=== PATIENT | male | born 1945 | race Caucasian/White ===

== ENCOUNTER 2017-12-04 11:51 | Inpatient (IN) | payer MEDICARE, OTHER ==
[~2017-12-04] VITALS: Ht 175.3 cm; Wt 70.8 kg
[~2017-12-04 11:51] MED LIST: AMIO200T PO; ASPI-1152 PO; Divalproex Sodium PO
--- NOTE | 2017-12-04 11:58 | NUR ---
BIBRA FROM HOME DT LOWER BACK PAIN X 1 WEEK, 09/19, SHARP PAIN, NO TRAUMA REPORTED,. PT UNABLE TO AMBULATE DT PAIN. VSS
[2017-12-04] MEDS ORDERED: MORPHINE SULFATE INJ 4 MG/ML DISP.SYRIN ONE ×2 (12:28→14:10)
[2017-12-04] MEDS ORDERED: MORPHINE SULFATE INJ 2 MG/ML DISP.SYRIN ONE (12:28)
[2017-12-04] MEDS ORDERED: KETOROLAC TROMETHAMINE INJ 30 MG/ML VIAL ONE (12:28)
[2017-12-04] MEDS ORDERED: MORPHINE SULFATE INJ 2 MG/ML DISP.SYRIN IM ONE (12:30)
[2017-12-04] MEDS ORDERED: KETOROLAC TROMETHAMINE INJ 60 MG/2 ML VIAL IM ONE (12:30)
[2017-12-04 12:45] LABS: BASOPHILS % (AUTO) 0.3 % (0.0-2.0); HEMATOCRIT 49 % (39-51); HEMOGLOBIN 17.2 g/dL (13.5-17.5); LYMPHOCYTES # (AUTO) 1.2 /CMM (0.8-4.8); LYMPHOCYTES % (AUTO) 13.4 % (20.0-44.0); MEAN CORPUSCULAR HEMOGLOBIN 32 PG (26.0-33.0); MEAN CORPUSCULAR HGB CONC 35 g/dl (31.0-36.0); MEAN CORPUSCULAR VOLUME 91 fL (80-96); MONOCYTES # (AUTO) 0.8 /CMM (0.1-1.30); MONOCYTES % (AUTO) 8.1 % (2.0-12.0); NEUTROPHILS # (AUTO) 7.3 /CMM (1.8-8.9); NEUTROPHILS % (AUTO) 78.2 % (43.0-81.0); PLATELET COUNT (AUTO) 206 /CMM (150-450); RDW COEFFICIENT OF VARIATION 12.6 (11.5-15.0); RED BLOOD CELL COUNT(AUTO) 5.41 MIL/uL (4.5-6.0); WHITE BLOOD COUNT (AUTO) 9.3 K/uL (4.3-11.0)
[2017-12-04 13:04] LABS: ALANINE AMINOTRANSFERASE 24 U/L (12-78); ALBUMIN 3.5 g/dL (3.4-5.0); ALKALINE PHOSPHATASE 62 U/L (46-116); ASPARTATE AMINOTRANSFERASE 20 U/L (15-37); BILIRUBIN,DIRECT 0.5 mg/dL (0.0-0.2); BILIRUBIN,TOTAL 2.2 mg/dL (0.2-1.0); CARBON DIOXIDE 22 mmol/L (21-32); CHLORIDE 102 mmol/L (98-107); CREATININE 0.8 mg/dL (0.6-1.3); GLUCOSE 116 mg/dL (74-106); POTASSIUM 3.6 mmol/L (3.5-5.1); SODIUM SERUM 135 mmol/L (136-145); TOTAL PROTEIN, SERUM 7.3 g/dL (6.4-8.2); UREA NITROGEN, BLOOD 18 mg/dL (7-18)
[2017-12-04] MEDS ORDERED: DIVA-78 PO (13:37)
[2017-12-04] MEDS ORDERED: ASPI-1152 PO (13:37)
--- NOTE | 2017-12-04 13:46 | NUR ---
IV ACCESSED TO RAC 20
[2017-12-04] MEDS ORDERED: MORPHINE SULFATE INJ 2 MG/ML DISP.SYRIN IV ONE (14:00)
[2017-12-04] MEDS ORDERED: ONDANSETRON 4 MG TAB.RAPDIS SL ONE (14:00)
[2017-12-04] MEDS ORDERED: ONDANSETRON 4 MG TAB.RAPDIS ONE (14:10)
--- NOTE | 2017-12-04 14:18 | NUR ---
321-1 TELE Addendum: 12/04/17 at 1421 by YVONNE 321-1 M/S
--- NOTE | 2017-12-04 14:38 | NUR ---
REPORT GIVEN TO JESUS ENAMORADO FOR MORGAN
--- NOTE | 2017-12-04 14:40 | NUR ---
PT TRANSPORTED TO [facility]
[2017-12-04 15:00] VITALS: BP 150/88
[2017-12-04] MEDS ORDERED: MAGNESIUM HYDROXIDE 30 ML UDC PO PRN (15:00)
[2017-12-04] MEDS ORDERED: Z GUARD REMEDY 2 OZ OINT TP PRN (15:00)
[2017-12-04] MEDS ORDERED: ONDANSETRON HCL/PF 4 MG/2 ML VIAL IVP PRN (15:00)
[2017-12-04] MEDS ORDERED: ACETAMINOPHEN 325 MG TABLET PO PRN (15:00)
[2017-12-04] MEDS ORDERED: TEMAZEPAM 15 MG CAPSULE PO PRN (15:00)
[2017-12-04] MEDS ORDERED: MAG HYDROX/AL HYDROX/SIMETH 30 ML UDC PO PRN (15:00)
--- NOTE | 2017-12-04 15:27 | NUR ---
RN ADMITTING NOTES REPORT GIVEN BY E.R NURSE KELLY. PATIENT ADMITTED TO UNIT AT 1450 VIA GURNEY ACCOMPANIED BU E.R. TRANSPORTER AND PT'S SON. TRANSFERRED PT TO BED GENTLY. PT IS A/O X4. ABLE TO VERBALIZED NEEDS AND CONCERNS. PT ORIENTED TO UNIT AND HIS ROOM. PT WITH DIAGNOSIS OF LEFT LOWER LEFT BACK AND HIP PAIN, LESS PAIN AT THIS TIME HE HAD JUST RECEIVED MORPHINE SULFATE 4MG IVP AN HOUR AGO IN THE E.[facility]. V/S TAKEN AND RECORDED. SKIN IS INTACT. LUNGS CLEAR ON AUSCULTATION. ABDOMEN SOFT, NON-TENDER AND NON-DISTENDED WITH POSITIVE BOWEL SOUNDS ON FOUR QUADRANTS. SAFETY MEASURES INITIATED. BED PLACED IN LOWEST LOCKED POSITION WITH SIDE-RAILS UP X2. BED ALARM ON AND CALL LIGHT WITHIN EASY REACH OF PT. ADVISE PT TO CALL FOR ASSISTANCE. WILL CONTINUE TO MONITOR PT ACCORDINGLY.
[2017-12-04 16:00] VITALS: BP 150/86
[2017-12-04] MEDS ORDERED: CLONIDINE HCL 0.1 MG TABLET PO PRN (16:00)
[2017-12-04] MEDS: IV NS 0.9% 1,000 ML IV PRN (16:15)
[2017-12-04] MEDS: DIVALPROEX SODIUM 500 MG TABLET.DR PO SCH (16:16)
--- NOTE | 2017-12-04 16:32 | NUR ---
RN NOTES PATIENT WITH IV ACCESS ON RIGHT AC G # 20 INTACT AND PATENT, IVF OF NS @ 75ML/HR STARTED, NO S/S OF INFILTRATION NOTED. WILL CONTINUE TO MONITOR.
[2017-12-04 17:33] LABS: APPEARANCE,URINE CLEAR (CLEAR); BILIRUBIN,URINE 1+ (NEGATIVE); BLOOD, URINE 1+ Ery/uL (NEGATIVE); COLOR,URINE DARK YELLO (YELLOW); KETONES,URINE 2+ (NEGATIVE); LEUKOCYTE ESTERASE ,URINE NEGATIVE (NEGATIVE); NITRITE, URINE NEGATIVE (NEGATIVE); PH,URINE 6.5 (5.0-8.0); PROTEIN,URINE NEGATIVE (NEGATIVE); UGLUCOSE NEGATIVE (NEGATIVE)
[2017-12-04 17:50] LABS: BACTERIA,URINE 1+ /HPF (None Seen); MUCUS,URINE Few /LPF (None Seen); SQUAMOUS EPITHELIAL CELL,UR 0-2 /HPF (None Seen)
--- NOTE | 2017-12-04 19:10 | NUR ---
MS RN OPENING NOTES PT IN BED,PT A/OX 4, ON ROOM AIR WITH NO SOB OR DISTRESS NOTED.PATIENT WITH IV ON RIGHT AC G # 20 INTACT AND PATENT, ONGOING FLUID NS @ 75ML/HR.DENIES PAIN AT THIS TIME. SAFETY PRECAUTIONS IN PLACE, CALL LIGHT W/REACH. WILL CONTINUE TO MONITOR
--- NOTE | 2017-12-04 19:27 | NUR ---
MS RN CLOSING NOTES PATIENT AWAKE AND WATCHING TV IN BED. HOB ELEVATED. A/O X4, SAME ABLE TO MAKE NEEDS KNOWN. ON ROOM AIR, BREATHING EVEN WITH NO ACUTE DISTRESS NOTED. IV ACCESS ON RAC INTACT AND PATENT, IVF OF NS @ 75ML/HR RUNNING WELL, NO S/S OF INFILTRATIONS NOTED. ALL SAFETY MEASURES INITIATED. BED IN LOWEST LOCKED POSITION WITH SIDE-RAILS UP X2. BED ALARM ON AND CALL LIGHT WITHIN EASY REACH OF PT. ALL NEEDS AND CARE ATTENDED WELL. ENDORSE TO AGRICULTURAL EDUCATION INSTRUCTOR NURSE FOR MORGAN.
[2017-12-04 20:00] VITALS: BP 116/70
[2017-12-04] MEDS: MORPHINE SULFATE INJ 4 MG/ML DISP.SYRIN IV PRN (21:06)
[2017-12-05] MEDS: MORPHINE SULFATE INJ 4 MG/ML DISP.SYRIN IV PRN ×2 (01:53→14:47)
[2017-12-05] MEDS: HYDROCODONE/APAP 5/325MG 1 EACH TABLET PO PRN (06:51)
--- NOTE | 2017-12-05 06:57 | NUR ---
MS RN CLOSING NOTES PT IN BED,PT A/OX 4, ON ROOM AIR WITH NO SOB OR S/S RESPIRATORY DISTRESS NOTED.PATIENT WITH IV ON RIGHT AC G # 20 INTACT AND PATENT, ONGOING FLUID NS @ 75ML/HR.PT COMPLAINED OF PAIN AT LOWER BACK RADIATING TO LEFT HIP. PRN MORPHINE AND NORCO WAS GIVEN.PAIN RELIEVED ONLY FOR COUPLE HOURS BY MEDS. SAFETY PRECAUTIONS IN PLACE, CALL LIGHT W/REACH. WILL ENDORSE TO NEXT SHIFT FOR MORGAN.
[2017-12-05 07:11] LABS: BASOPHILS % (AUTO) 0.2 % (0.0-2.0); EOSINOPHILS % (AUTO) 0.1 % (0.0-6.0); HEMATOCRIT 53 % (39-51); HEMOGLOBIN 17.7 g/dL (13.5-17.5); LYMPHOCYTES # (AUTO) 2.5 /CMM (0.8-4.8); MEAN CORPUSCULAR HEMOGLOBIN 32 PG (26.0-33.0); MEAN CORPUSCULAR HGB CONC 34 g/dl (31.0-36.0); MEAN CORPUSCULAR VOLUME 96 fL (80-96); MONOCYTES # (AUTO) 1.4 /CMM (0.1-1.30); MONOCYTES % (AUTO) 10.8 % (2.0-12.0); NEUTROPHILS # (AUTO) 8.7 /CMM (1.8-8.9); NEUTROPHILS % (AUTO) 68.9 % (43.0-81.0); PLATELET COUNT (AUTO) 209 /CMM (150-450); RDW COEFFICIENT OF VARIATION 13.5 (11.5-15.0); RED BLOOD CELL COUNT(AUTO) 5.51 MIL/uL (4.5-6.0); WHITE BLOOD COUNT (AUTO) 12.6 K/uL (4.3-11.0)
--- NOTE | 2017-12-05 07:18 | NUR ---
RN INITIAL NOTES: PATIENT RESTING IN BED. NONLABORED BREATHING NOTED ON ROOM AIR. DENYING PAIN AT THE MOMENT. IV SITE ON RIGHT AC GAUGE 20 PATENT AND INTACT. BED IN LOWEST LOCKED POSITION. CALL LIGHT WITHIN REACH. WILL CONTINUE TO MONITOR
[2017-12-05 07:29] LABS: CALCIUM, SERUM 8.8 mg/dL (8.5-10.1); CARBON DIOXIDE 24 mmol/L (21-32); CHLORIDE 106 mmol/L (98-107); CREATININE 0.7 mg/dL (0.6-1.3); GLUCOSE 98 mg/dL (74-106); MAGNESIUM 2.2 mg/dL (1.8-2.4); PHOSPHORUS 2.8 mg/dL (2.5-4.9); POTASSIUM 3.7 mmol/L (3.5-5.1); SODIUM SERUM 141 mmol/L (136-145); UREA NITROGEN, BLOOD 16 mg/dL (7-18)
[2017-12-05 07:31] LABS: CHOLESTEROL 166 mg/dL (<200); HDL CHOLESTEROL 74 mg/dL (40-60); LDL 76 mg/dL (0-99); TRIGLYCERIDES 95 mg/dL (30-150)
[2017-12-05 08:00] VITALS: BP 125/53
[2017-12-05] MEDS: DIVALPROEX SODIUM 500 MG TABLET.DR PO SCH ×3 (09:20→17:56)
[2017-12-05] MEDS: ASPIRIN EC 81 MG TABLET.DR PO SCH (09:20)
[2017-12-05] MEDS: CARISOPRODOL 350 MG TABLET PO SCH ×4 (09:21→20:52)
[2017-12-05] MEDS: DEXAMETHASONE SOD PHOSPHATE 4 MG/ML VIAL IV SCH ×2 (09:23→17:57)
[2017-12-05] MEDS: CEFTRIAXONE 1 G in IV D5W 50 ML IV SCH (10:09)
[2017-12-05 14:49] VITALS: BP 144/80
[2017-12-05 16:00] VITALS: BP 127/75
--- NOTE | 2017-12-05 19:15 | NUR ---
MS RN OPENING NOTES PATIENT RESTING IN BED.NO ACUTE DISTRESS NOTED. DENYING PAIN AT THE MOMENT. IV SITE ON RIGHT AC GAUGE 20 PATENT AND INTACT. BED IN LOWEST LOCKED POSITION. CALL LIGHT WITHIN REACH. PAIN MANAGEMENT IS THE MAIN PLAN FOR THE PT. WILL CONTINUE TO MONITOR
--- NOTE | 2017-12-05 19:20 | NUR ---
RN CLOSING NOTES: PATIENT RESTING IN BED. NONLABORED BREATHING NOTED ON ROOM AIR. DENYING PAIN AT THE MOMENT. IV SITE ON RIGHT AC GAUGE 20 PATENT AND INTACT. BED IN LOWEST LOCKED POSITION. CALL LIGHT WITHIN REACH. ENDORSED TO GEORGIE LEE PATIENT EDUCATED ON DVT PUMP USAGE, PATIENT REFUSING APPLICATION AT THE MOMENT
[2017-12-05 20:00] VITALS: BP_SYST 141; BP_DIAS 80; BP_DIAS 86
[2017-12-06] MEDS: IV NS 0.9% 1,000 ML IV PRN ×2 (02:06→17:01)
[2017-12-06 06:59] LABS: BASOPHILS % (AUTO) 0.2 % (0.0-2.0); HEMATOCRIT 45 % (39-51); HEMOGLOBIN 15.3 g/dL (13.5-17.5); LYMPHOCYTES # (AUTO) 1.9 /CMM (0.8-4.8); LYMPHOCYTES % (AUTO) 20.7 % (20.0-44.0); MEAN CORPUSCULAR HEMOGLOBIN 32 PG (26.0-33.0); MEAN CORPUSCULAR HGB CONC 34 g/dl (31.0-36.0); MEAN CORPUSCULAR VOLUME 96 fL (80-96); MONOCYTES # (AUTO) 0.6 /CMM (0.1-1.30); MONOCYTES % (AUTO) 6.6 % (2.0-12.0); NEUTROPHILS # (AUTO) 6.8 /CMM (1.8-8.9); NEUTROPHILS % (AUTO) 72.5 % (43.0-81.0); PLATELET COUNT (AUTO) 192 /CMM (150-450); RDW COEFFICIENT OF VARIATION 13.4 (11.5-15.0); RED BLOOD CELL COUNT(AUTO) 4.74 MIL/uL (4.5-6.0); WHITE BLOOD COUNT (AUTO) 9.4 K/uL (4.3-11.0)
--- NOTE | 2017-12-06 07:00 | NUR ---
MS RN CLOSING NOTES PATIENT RESTING IN BED. PT ON ROOM AIR. DENYING PAIN AT THIS TIME. IV SITE ON RIGHT AC GAUGE 20 PATENT AND INTACT. ONGOING FLUID NS 0.9% AT 75 ML/HR. BED IN LOWEST LOCKED POSITION. CALL LIGHT WITHIN REACH.PATIENT REFUSING DVT PUMPS. WILL ENDORSE TO NEXT SHIFT FOR MORGAN.
[2017-12-06 07:14] LABS: CALCIUM, SERUM 8.6 mg/dL (8.5-10.1); CARBON DIOXIDE 28 mmol/L (21-32); CHLORIDE 103 mmol/L (98-107); CREATININE 0.6 mg/dL (0.6-1.3); GLUCOSE 117 mg/dL (74-106); POTASSIUM 3.8 mmol/L (3.5-5.1); SODIUM SERUM 138 mmol/L (136-145); UREA NITROGEN, BLOOD 19 mg/dL (7-18)
[2017-12-06 08:00] VITALS: BP 153/72
--- NOTE | 2017-12-06 08:00 | NUR ---
SET AND EXHIBIT DESIGNER NOTES: LOWER EXTREMITY WEAKNESS NOTED DUE TO PAIN Addendum: 12/06/17 at 0846 by MASSIMO SLADE RN Amended: Links added.
[2017-12-06] MEDS: CARISOPRODOL 350 MG TABLET PO SCH ×4 (08:22→21:21)
[2017-12-06] MEDS: DIVALPROEX SODIUM 500 MG TABLET.DR PO SCH ×3 (08:22→17:01)
[2017-12-06] MEDS: ASPIRIN EC 81 MG TABLET.DR PO SCH (08:22)
[2017-12-06] MEDS: DEXAMETHASONE SOD PHOSPHATE 4 MG/ML VIAL IV SCH ×2 (08:22→17:01)
[2017-12-06] MEDS: CEFTRIAXONE 1 G in IV D5W 50 ML IV SCH (11:07)
[2017-12-06 16:00] VITALS: BP 128/69
--- NOTE | 2017-12-06 19:20 | NUR ---
RN CLOSING NOTES: PATIENT RESTING IN BED. NONLABORED BREATHING NOTED ON ROOM AIR. DENYING PAIN AT THE MOMENT. IV SITE ON RIGHT AC GAUGE 20 PATENT AND INTACT. BED IN LOWEST LOCKED POSITION. CALL LIGHT WITHIN REACH. PATIENT ENCOURAGED TO TURN AND REPOSITION EVERY 2 HOURS. KEPT CLEAN AND DRY THROUGHOUT SHIFT. REFUSING DVT PUMP APPLICATION AT THE MOMENT. ENDORSED TO DIE DESIGNER
--- NOTE | 2017-12-06 19:25 | NUR ---
MS RN NOTES Report received. Patient received in bed, awake and verbally responsive. Alert and oriented x4. Denies any pain at the moment. No SOB/labored breathing noted. Not in any type of distress. Safety measures in place. Bed in lowest position with call light within reach. Enforced to call for any assistance. Will continue to monitor and assess patient
[2017-12-06 20:00] VITALS: BP 132/75
[2017-12-06] MEDS: HYDROCODONE/APAP 5/325MG 1 EACH TABLET PO PRN (21:22)
[2017-12-07 07:13] LABS: BASOPHILS % (AUTO) 0.2 % (0.0-2.0); HEMATOCRIT 47 % (39-51); HEMOGLOBIN 15.7 g/dL (13.5-17.5); LYMPHOCYTES # (AUTO) 2.1 /CMM (0.8-4.8); MEAN CORPUSCULAR HEMOGLOBIN 33 PG (26.0-33.0); MEAN CORPUSCULAR HGB CONC 34 g/dl (31.0-36.0); MEAN CORPUSCULAR VOLUME 97 fL (80-96); MONOCYTES # (AUTO) 0.6 /CMM (0.1-1.30); NEUTROPHILS # (AUTO) 6.5 /CMM (1.8-8.9); NEUTROPHILS % (AUTO) 69.8 % (43.0-81.0); PLATELET COUNT (AUTO) 192 /CMM (150-450); RDW COEFFICIENT OF VARIATION 13.5 (11.5-15.0); RED BLOOD CELL COUNT(AUTO) 4.82 MIL/uL (4.5-6.0); WHITE BLOOD COUNT (AUTO) 9.3 K/uL (4.3-11.0)
--- NOTE | 2017-12-07 07:13 | NUR ---
MS RN CLOSING NOTES Report given. Patient remained in bed, awake and comfortable. Alert and oriented x4, verbally responsive. Denies any pain at this moment. No SOB/labored breathing noted or reported. Not in any type of distress. Afebrile. All needs anticipated and met. Safety measures in place. Bed in locked and lowest position with call light within reach. Endorsed to oncoming shift nurse.
--- NOTE | 2017-12-07 07:13 | NUR ---
MS RN CLOSING NOTES Report given. Patient remained in bed, awake and comfortable. Alert and oriented x4, verbally responsive. Denies any pain at this moment. Rectal incision dressing changed. Sitz bath refused. No SOB/labored breathing noted or reported. Not in any type of distress. Afebrile. Continue on antibiotic treatment. All needs anticipated and met. Safety measures in place. Bed in locked and lowest position with call light within reach. Endorsed to oncoming shift nurse. Addendum: 12/07/17 at 0713 by AVELINA JOSÉ RN INCORRECT PATIENT - DISREGARD
--- NOTE | 2017-12-07 07:25 | NUR ---
MS RN OPENING NOTES RECEIVED PATIENT AWAKE IN BED IN NO ACUTE SIGNS OF DISTRESS. A/O X4. ABLE TO MAKE NEEDS KNOWN, DENIES ANY PAIN OR DISCOMFORTS AT THIS TIME. ON ROOM AIR, BREATHING EVEN AND UNLABORED. IV ACCESS ON RIGHT AC INTACT AND PATENT, IVF OF NS @ 75ML/HR INFUSING WELL, NO S/S OF INFILTRATIONS NOTED. SKIN DRY AND WARM TO TOUCH. SAFETY MEASURES IN PLACE. CALL LIGHT WITHIN REACH. BED IN LOWEST LOCKED POSITION WITH SR UP X2. WILL CONTINUE TO MONITOR.
[2017-12-07 07:32] LABS: CALCIUM, SERUM 8.5 mg/dL (8.5-10.1); CARBON DIOXIDE 33 mmol/L (21-32); CHLORIDE 102 mmol/L (98-107); CREATININE 0.6 mg/dL (0.6-1.3); GLUCOSE 108 mg/dL (74-106); POTASSIUM 3.9 mmol/L (3.5-5.1); SODIUM SERUM 139 mmol/L (136-145); UREA NITROGEN, BLOOD 20 mg/dL (7-18)
[2017-12-07 08:00] VITALS: BP 146/62
[2017-12-07] MEDS: DEXAMETHASONE SOD PHOSPHATE 4 MG/ML VIAL IV SCH (08:44)
[2017-12-07] MEDS: ASPIRIN EC 81 MG TABLET.DR PO SCH (08:44)
[2017-12-07] MEDS: CARISOPRODOL 350 MG TABLET PO SCH ×2 (08:44→12:18)
[2017-12-07] MEDS: DIVALPROEX SODIUM 500 MG TABLET.DR PO SCH ×2 (08:44→12:18)
[2017-12-07] MEDS: CEFTRIAXONE 1 G in IV D5W 50 ML IV SCH (09:49)
[2017-12-07] MEDS ORDERED: CLON0.1T14 PO (09:51)
[2017-12-07] MEDS ORDERED: METH4TAB17 PO (09:51)
[2017-12-07] MEDS ORDERED: CARI350T27 PO (09:51)
[2017-12-07] MEDS ORDERED: TEMA15CA5 PO (09:51)
--- NOTE | 2017-12-07 11:01 | NUR ---
RN NOTES PATIENT FOR DISCHARGE THIS AFTERNOON TO [facility]. CALLED AND REPORT GIVEN TO NURSE VAZQUEZ AND SAID THAT PATIENT WILL GO TO ROOM 102. PATIENT'S SON TANIYA AWARE OF PT'S TRANSFER TO [facility].
--- NOTE | 2017-12-07 14:23 | NUR ---
RN DISCHARGED NOTES PATIENT DISCHARGED TO [facility] IN STABLE CONDITION. A/O X4, SAME ABLE TO MAKE NEEDS KNOWN WITH NO C/O PAIN VOICED DURING DISCHARGE. V/S TAKEN AND RECORDED. SKIN IS INTACT. BELONGINGS CHECKED, COUNTED AND SIGNED FORM. HEALTH TEACHINGS GIVEN AND VERBALIZED UNDERSTANDING. SMOKING CESSATION EDUCATION GIVEN. PATIENT LEFT UNIT @ 1415 VIA GURNEY ON ROOM AIR IN NO ACUTE SIGNS OF DISTRESS ACCOMPANIED BY 2 EMT'S. CHARGE NURSE AWARE OF DISCHARGE.
[2017-12-07] MEDS ORDERED: CEPH-570 PO (14:50)
== END 2017-12-07 14:00 | DRG 540 ==
LOC: ER 11:53 → MED 14:24
PROVIDERS: ADMIT Nurse Practitioner Acute Care; ATTEND Nurse Practitioner Acute Care
DX: M86.9 Osteomyelitis, unspecified (principal); N39.0 Urinary tract infection, site not specified; F19.20 Other psychoactive substance dependence, uncomplicated; I48.91 Unspecified atrial fibrillation; I10 Essential (primary) hypertension; R73.9 Hyperglycemia, unspecified; M54.5 Low back pain; M25.552 Pain in left hip; I25.2 Old myocardial infarction; R56.9 Unspecified convulsions; Z87.891 Personal history of nicotine dependence; F12.90 Cannabis use, unspecified, uncomplicated; Z79.899 Other long term (current) drug therapy
CPT/HCPCS: 36415; 71045-TC; 73502; 80048-TC; 80061-TC; 80076-TC; 81000-TC; 83735-TC; 84100-TC; 85025-TC; 87081-TC; 97116-TC; 97530-TC; A4606; J0696; J1100; J1885; J2270; J7030; J7060; Q0162; Z7610

== ENCOUNTER 2023-12-11 05:51 | Inpatient (IN) | payer BC, MEDICARE ==
[~2023-12-11] VITALS: Ht 172.7 cm; Wt 67.6 kg
[~2023-12-11 05:51] MED LIST changes: -AMIO200T PO; -ASPI-1152 PO; +ASPI-1420 PO; +CARI350T27 PO; +CEPH-570 PO; +CLON0.1T14 PO; +DIVA-78 PO; -Divalproex Sodium PO; +METH4TAB17 PO; +TEMA15CA5 PO
--- NOTE | 2023-12-11 05:59 | NUR ---
HOWARD FROM HOME C/O SOB LAST NIGHT TESTED COV + 12/03/23 SATTING 92% ON R/A ON SCENE.PT PLACE IN BED CONNECT TO MONITOR,WAITING FOR ORDERS.
--- NOTE | 2023-12-11 06:58 | NUR ---
SEEN PT AT BEDSIDE.
--- NOTE | 2023-12-11 07:14 | NUR ---
COOK HELPER PRESERVES AT BEDSIDE.
[2023-12-11 07:32] LABS: BASOPHILS % (AUTO) 0.1 % (0.0-2.0); EOSINOPHILS % (AUTO) 0.1 % (0.0-6.0); HEMATOCRIT 27 % (39-51); HEMOGLOBIN 9.2 g/dL (13.5-17.5); LYMPHOCYTES # (AUTO) 0.3 K/uL (0.8-4.8); LYMPHOCYTES % (AUTO) 0.9 % (20.0-44.0); MEAN CORPUSCULAR HEMOGLOBIN 30 PG (26.0-33.0); MEAN CORPUSCULAR HGB CONC 34 g/dl (31.0-36.0); MEAN CORPUSCULAR VOLUME 88 fL (80-96); MONOCYTES # (AUTO) 0.2 K/uL (0.1-1.30); MONOCYTES % (AUTO) 0.5 % (2.0-12.0); NEUTROPHILS # (AUTO) 29.8 K/uL (1.8-8.9); NEUTROPHILS % (AUTO) 98.4 % (43.0-81.0); PLATELET COUNT (AUTO) 394 K/uL (150-450); RED CELL DISTRIBUTION WIDTH 16.5 % (11.5-15.0)
[2023-12-11 07:34] LABS: WHITE BLOOD COUNT (AUTO) 30.3 K/uL (4.3-11.0)
--- NOTE | 2023-12-11 07:34 | NUR ---
wbc 30.3, md aware
[2023-12-11 07:46] LABS: INR 1.08 (0.91-1.10); PARTIAL THROMBOPLASTIN TIME 25.5 SEC (24.3-34.3); PROTHROMBIN TIME 11.4 SECS (9.2-11.1)
[2023-12-11 07:51] LABS: LACTIC ACID 1.3 mmol/L (0.4-2.0)
[2023-12-11 07:58] LABS: ALANINE AMINOTRANSFERASE 24 U/L (12-78); ALBUMIN 3.3 g/dL (3.4-5.0); ALKALINE PHOSPHATASE 131 U/L (46-116); ASPARTATE AMINOTRANSFERASE 38 U/L (15-37); BILIRUBIN,DIRECT 0.1 mg/dL (0.0-0.2); BILIRUBIN,TOTAL 0.6 mg/dL (0.2-1.0); CALCIUM, SERUM 8.6 mg/dL (8.5-10.1); CARBON DIOXIDE 22 mmol/L (21-32); CHLORIDE 98 mmol/L (98-107); CREATININE 0.7 mg/dL (0.6-1.3); GLUCOSE 85 mg/dL (74-106); POTASSIUM 4.3 mmol/L (3.5-5.1); SODIUM SERUM 130 mmol/L (136-145); TOTAL PROTEIN, SERUM 6.6 g/dL (6.4-8.2); UREA NITROGEN, BLOOD 20 mg/dL (7-18)
[2023-12-11] MEDS ORDERED: CEFTRIAXONE 1GM BAG (ER ONLY) 50 ML IV ONE (08:01)
[2023-12-11] MEDS: CEFTRIAXONE 1GM BAG (ER ONLY) 50 ML IV ONE (08:08)
[2023-12-11] MEDS ORDERED: DOCU100T2 PO (08:10)
[2023-12-11] MEDS ORDERED: SERT50TA PO (08:10)
[2023-12-11] MEDS ORDERED: APIX5TAB PO (08:10)
[2023-12-11] MEDS ORDERED: LEVO125T8 PO (08:10)
[2023-12-11] MEDS ORDERED: AMIO100T4 PO (08:10)
--- NOTE | 2023-12-11 08:30 | NUR ---
MOVE SHEET SUBMITTED & CALLED FOR BED.
[2023-12-11] MEDS: AZITHROMYCIN 500 MG in IV D5W 250 ML IV ONE (08:40)
[2023-12-11] MEDS: IV NS 0.9% 1,000 ML BAG IV ONE (08:40)
--- NOTE | 2023-12-11 08:42 | NUR ---
covid positive, aware
--- NOTE | 2023-12-11 09:06 | NUR ---
HOSPITALIST SPEAKING WITH DR. BRUCE.
--- NOTE | 2023-12-11 09:11 | NUR ---
GOT BED 113-1 READY AFTER 10 AM.
--- NOTE | 2023-12-11 09:17 | NUR ---
ROOM 101, ADMITTING AWARE
--- NOTE | 2023-12-11 09:31 | NUR ---
TANIYA [facility] [phone]
--- NOTE | 2023-12-11 10:09 | NUR ---
REPORT GIVEN TO GEGE LEE
[2023-12-11 10:30] LABS: ANISOCYTOSIS 1+; BAND % (MANUAL) 9 % (0.0-5.0); BASOPHILS % (MANUAL) 0 % (0.0-2.0); EOSINOPHILS % (MANUAL) 0 % (0-4); LYMPHOCYTES % (MANUAL) 5 % (16-48); MONOCYTES % (MANUAL) 2 % (0-11.0); NEUTROPHILS % (MANUAL) 84 (42-76); PLATELET ESTIMATE ADEQUATE; STOMATOCYTES RARE
--- NOTE | 2023-12-11 10:43 | NUR ---
DR EVERETT AT BEDSIDE
--- NOTE | 2023-12-11 11:00 | NUR ---
PATIENT TRANSFERED TO [facility] VIA [facility], ALL CARE ENDORSED TO JESUS DE GUZMAN
[2023-12-11] MEDS ORDERED: ACETAMINOPHEN 650 MG/SUPP.RECT RC PRN (11:30)
[2023-12-11] MEDS ORDERED: ONDANSETRON HCL/PF 4 MG/2 ML VIAL IVP PRN (11:30)
[2023-12-11] MEDS ORDERED: VANCOMYCIN 1 GM in IV D5W 250 ML IV ONE (11:30)
[2023-12-11] MEDS ORDERED: ALBUTEROL SULFATE 8 GM HFA.AER.AD IH PRN (11:30)
--- NOTE | 2023-12-11 11:40 | NUR ---
LEAD ELECTRICAL ENGINEER NOTES Received from ER via [facility] with a diagnosis of respiratory distress and tested positive for COVID19 and on isolation. AOX4 with no complaints of pain or discomfort at this time. Patient is on 2L NC and tolerating it well. IV access on RAC 20G patent and intact. HOB elevated to pts comfort. Siderails up at all times x2. Bed locked and at its lowest height for safety. Call light within reach. Care is ongoing.
[2023-12-11] MEDS ORDERED: CEFTRIAXONE 1 G in IV D5W 50 ML IV SCH (12:00)
[2023-12-11 12:03] VITALS: BP 125/69; TEMP 97.3; O2SAT 97
[2023-12-11] MEDS: dexaMETHasone SOD PHOSPHATE 10 MG/ML VIAL IV SCH (12:23)
[2023-12-11] MEDS: APIXABAN 5 MG TABLET PO SCH (12:27)
[2023-12-11] MEDS ORDERED: MEROPENEM 500 MG in IV NS 0.9% 50 ML IV SCH (13:00)
[2023-12-11] MEDS: MEROPENEM 1 G in IV NS 0.9% 100 ML IV SCH (13:52)
--- NOTE | 2023-12-11 13:59 | NUR ---
REGULATORY COMPLIANCE OFFICER NOTES Patient on room air with 02 saturation at 98%. No SOB noted.
[2023-12-11] MEDS: REMDESIVIR (CHARGED) 200 MG in IV NS 0.9% 250 ML IV ONE (14:54)
--- NOTE | 2023-12-11 14:54 | NUR ---
INGOT WEIGHER NOTES Remdesivir IV ATB given now and Vancomycin IV ATB to be given after by RN. Charge Nurse aware.
[2023-12-11] MEDS: VANCOMYCIN 1.5 GM in IV D5W 500 ML IV ONE (15:56)
[2023-12-11 16:00] VITALS: BP 120/60; TEMP 97.2; O2SAT 94
[2023-12-11] MEDS: DOCUSATE SODIUM 100 MG CAPSULE PO SCH (16:16)
[2023-12-11] MEDS ORDERED: APIXABAN 5 MG TABLET PO SCH (17:00)
--- NOTE | 2023-12-11 18:45 | NUR ---
PUNCH BOX TENDER CLOSING NOTES All dues meds and tx given as ordered. Pt tolerated everything well. All needs attended to. HOB elevated to pts comfort. Siderails up at all times x2. Bed locked and at its lowest height for safety. Call light within reach. Will endorse to oncoming nurse.
--- NOTE | 2023-12-11 19:35 | NUR ---
RN OPENING NOTES RECEIVED PATIENT RESTING COMFORTABLY IN BED, AWAKE. A/O X4, NO ACUTE DISTRESS NOTED AT THIS TIME. DENIES PAIN. AFEBRILE. ON EXTERNAL MONITOR READING 75 PACING. TOLERATING ROOM AIR AT THIS TIME 97% SPO2. IV ACCESS ON LEFT FA #20G, PATENT AND INTACT. PT IS AMBULATORY, ABLE TO USE TOILET AND URINAL. REMINDED PT TO CALL FOR ASSISTANCE. ALL SAFETY MEASURES IMPLEMENTED: SIDE RAILS UP AT ALL TIMES, BED LOCKED AND IN LOWEST POSITION. CALL LIGHT AND BED TABLE ON EASY REACH. WILL CONTINUE PLAN OF CARE.
[2023-12-11 20:00] VITALS: BP 116/59; TEMP 97.9; O2SAT 97
[2023-12-11] MEDS ORDERED: DOXYCYCLINE 100 MG in IV D5W 100 ML IV SCH (21:00)
[2023-12-12] VITALS: BP 112/58; TEMP 97.7; O2SAT 94
[2023-12-12] MEDS: VANCOMYCIN HCL 1.25 GM in IV D5W 250 ML IV SCH (01:43)
[2023-12-12] MEDS: MAGNESIUM HYDROXIDE 30 ML UDC PO PRN (03:50)
[2023-12-12 04:00] VITALS: BP 118/55; TEMP 98; O2SAT 93
--- NOTE | 2023-12-12 06:48 | NUR ---
POOLROOM TABLE ATTENDANT CLOSING NOTES PATIENT IN BED, AWAKE. REMAINS STABLE. AFEBRILE. NO SOB NOTED AT THIS TIME. NO C/O PAIN OR ANY DISCOMFORT. AFEBRILE. ON ROOM AIR SATING 98% SPO2. INTACT IV ACCESS ON LEFT FA #20G, PATENT. ABLE TO USE TOILET. ASSISTED WITH ALL HIS NEEDS. ALL DUE MEDS GIVEN ORDERED. KEPT CLEAN AND COMFORTABLE. ISOLATION FOR COVID INFECTION OBSERVED. ALL SAFETY MEASURES MAINTAINED. WILL ENDORSE TO INCOMING SHIFT RN.
--- NOTE | 2023-12-12 07:19 | NUR ---
CAMP PROGRAM DIRECTOR NOTES Received pt awake in bed. AOX4 with no complaints of pain or discomfort at this time. On isolation for COVID19. Patient is on room air and tolerating it well. IV access on LAC 22G patent and intact. HOB elevated to pts comfort. Siderails up at all times x2. Bed locked and at its lowest height for safety. Call light within reach. Care is ongoing.
[2023-12-12 08:00] VITALS: BP 110/64; TEMP 97.7; O2SAT 94
[2023-12-12 08:50] LABS: INR 1.14 (0.91-1.10); PARTIAL THROMBOPLASTIN TIME 25.9 SEC (24.3-34.3)
[2023-12-12 08:53] LABS: BASOPHILS # (AUTO) 0.1 K/uL (0.0-0.2); BASOPHILS % (AUTO) 0.2 % (0.0-2.0); HEMATOCRIT 23 % (39-51); HEMOGLOBIN 8.1 g/dL (13.5-17.5); LYMPHOCYTES # (AUTO) 0.6 K/uL (0.8-4.8); LYMPHOCYTES % (AUTO) 2.1 % (20.0-44.0); MEAN CORPUSCULAR HEMOGLOBIN 30 PG (26.0-33.0); MEAN CORPUSCULAR HGB CONC 35 g/dl (31.0-36.0); MEAN CORPUSCULAR VOLUME 87 fL (80-96); MONOCYTES # (AUTO) 0.1 K/uL (0.1-1.30); MONOCYTES % (AUTO) 0.4 % (2.0-12.0); NEUTROPHILS # (AUTO) 26.2 K/uL (1.8-8.9); NEUTROPHILS % (AUTO) 97.3 % (43.0-81.0); PLATELET COUNT (AUTO) 315 K/uL (150-450); RED CELL DISTRIBUTION WIDTH 16.9 % (11.5-15.0); WHITE BLOOD COUNT (AUTO) 26.9 K/uL (4.3-11.0)
[2023-12-12 08:59] LABS: ALANINE AMINOTRANSFERASE 20 U/L (12-78); ALBUMIN 2.8 g/dL (3.4-5.0); ALKALINE PHOSPHATASE 138 U/L (46-116); ASPARTATE AMINOTRANSFERASE 34 U/L (15-37); BILIRUBIN,DIRECT 0.1 mg/dL (0.0-0.2); BILIRUBIN,TOTAL 0.6 mg/dL (0.2-1.0); CALCIUM, SERUM 8.1 mg/dL (8.5-10.1); CARBON DIOXIDE 23 mmol/L (21-32); CHLORIDE 102 mmol/L (98-107); CREATININE 0.6 mg/dL (0.6-1.3); GLUCOSE 82 mg/dL (74-106); POTASSIUM 3.4 mmol/L (3.5-5.1); SODIUM SERUM 134 mmol/L (136-145); TOTAL PROTEIN, SERUM 5.8 g/dL (6.4-8.2); UREA NITROGEN, BLOOD 14 mg/dL (7-18)
[2023-12-12 09:25] LABS: FERRITIN 1919 ng/mL (8-388)
[2023-12-12] MEDS: POTASSIUM CHLORIDE 20 MEQ TAB.PRT.SR PO ONE (09:32)
[2023-12-12] MEDS: AMIODARONE HCL 200 MG TABLET PO SCH (09:32)
[2023-12-12] MEDS: LEVOTHYROXINE SODIUM 125 MCG TABLET PO SCH (09:32)
[2023-12-12] MEDS: SERTRALINE HCL 50 MG TABLET PO SCH (09:32)
--- NOTE | 2023-12-12 09:40 | NUR ---
SECURITY STRATEGIST NOTES Patient has routine Eliquis and HGB is 8.[address] Palma made aware with the ok to adminster this mornings dose and get a H&H at 1400. Noted and carried out.
--- NOTE | 2023-12-12 11:00 | NUR ---
PERSONAL LOAN SPECIALIST NOTES Patient complaining of increased congestion. Informed Dr. Palma and relays this mornings CXR with no new orders at this time.
[2023-12-12 12:00] VITALS: BP 114/56; TEMP 97.9; O2SAT 94
[2023-12-12 14:50] LABS: HEMATOCRIT 23 % (39-51); HEMOGLOBIN 7.8 g/dL (13.5-17.5); MEAN CORPUSCULAR HEMOGLOBIN 29 PG (26.0-33.0); MEAN CORPUSCULAR HGB CONC 34 g/dl (31.0-36.0); MEAN CORPUSCULAR VOLUME 87 fL (80-96); PLATELET COUNT (AUTO) 294 K/uL (150-450); RED BLOOD CELL COUNT(AUTO) 2.68 MIL/uL (4.5-6.0); RED CELL DISTRIBUTION WIDTH 16.8 % (11.5-15.0); WHITE BLOOD COUNT (AUTO) 24.7 K/uL (4.3-11.0)
[2023-12-12] MEDS: ACETAMINOPHEN 325 MG TABLET PO PRN (15:15)
[2023-12-12] MEDS: REMDESIVIR (CHARGED) 100 MG in IV NS 0.9% 120 ML IV SCH (15:15)
--- NOTE | 2023-12-12 15:40 | NUR ---
WEB OPERATIONS LEAD NOTES Relayed that the patients HGB redraw results came back and is 7.8 to Sky Patel NP and made him aware that patient has black stool. New order to send stool to the lab and test for occult blood. Noted and carried out.
[2023-12-12 16:00] VITALS: BP 106/67; TEMP 98.5; O2SAT 96
--- NOTE | 2023-12-12 16:08 | NUR ---
PERFUSIONIST NOTES Ok to give this dose of Eliquis per Sky Patel NP.
[2023-12-12] MEDS: PANTOPRAZOLE 40 MG TABLET.DR PO SCH (16:39)
[2023-12-12 18:33] LABS: OCCULT BLOOD STOOL POSITIVE (NEGATIVE)
--- NOTE | 2023-12-12 18:54 | NUR ---
MANAGER USER EXPERIENCE CLOSING NOTES All due meds and tx given as ordered. Pt tolerated everything well. All needs attended to. Pt is on room air and tolerating it well. HOB elevated to pts comfort. Siderails up at all times x2. Bed locked and at its lowest height for safety. Call light within reach. WIll endorse to oncoming nurse.
--- NOTE | 2023-12-12 19:30 | NUR ---
CONTINUING EDUCATION INSTRUCTOR OPENING NOTE PT IS RECEIVED IN BED RESTING A/OX 4 ABLE TO MAKE NEEDS MET WITH NO COMPLICATIONS. PT IS CURRENTLY ON ROOM AIR SATURATING AT 95% AND DENIES SOB OR RESPIRATORY DISTRESS. PT IS ON TELE MONITORING WITH A READING OF A-PACING IN THE 70'S. PT IS AMBULATORY WITH NO ASSIST. PT HAS IV ACCESS PM THE RAC# 22G AND A RCW PORTACATH. ALL SAFETY MEASURES IN PLACE, BED IS LOCKED, ON THE LOWEST POSITION, WITH CALL LIGHT AND BEDSIDE TABLE WITHIN EASY REACH. PLAN OF CARE ONGOING.
[2023-12-12 20:00] VITALS: BP 110/57; TEMP 97.6; O2SAT 95
[2023-12-13] VITALS: BP 116/69; TEMP 97.3; O2SAT 93
[2023-12-13 04:00] VITALS: BP 116/67; TEMP 97.5; O2SAT 100
[2023-12-13 06:10] LABS: BASOPHILS % (AUTO) 0.1 % (0.0-2.0); HEMATOCRIT 24 % (39-51); HEMOGLOBIN 8.2 g/dL (13.5-17.5); LYMPHOCYTES # (AUTO) 0.9 K/uL (0.8-4.8); LYMPHOCYTES % (AUTO) 4.8 % (20.0-44.0); MEAN CORPUSCULAR HEMOGLOBIN 30 PG (26.0-33.0); MEAN CORPUSCULAR HGB CONC 35 g/dl (31.0-36.0); MEAN CORPUSCULAR VOLUME 86 fL (80-96); MONOCYTES % (AUTO) 0.3 % (2.0-12.0); NEUTROPHILS # (AUTO) 18.4 K/uL (1.8-8.9); NEUTROPHILS % (AUTO) 94.8 % (43.0-81.0); PLATELET COUNT (AUTO) 272 K/uL (150-450); RED BLOOD CELL COUNT(AUTO) 2.74 MIL/uL (4.5-6.0); RED CELL DISTRIBUTION WIDTH 16.9 % (11.5-15.0); WHITE BLOOD COUNT (AUTO) 19.4 K/uL (4.3-11.0)
[2023-12-13 06:18] LABS: INR 1.13 (0.91-1.10); PARTIAL THROMBOPLASTIN TIME 26.3 SEC (24.3-34.3); PROTHROMBIN TIME 11.9 SECS (9.2-11.1)
[2023-12-13 06:56] LABS: ALANINE AMINOTRANSFERASE 24 U/L (12-78); ALBUMIN 2.9 g/dL (3.4-5.0); ALKALINE PHOSPHATASE 147 U/L (46-116); ASPARTATE AMINOTRANSFERASE 33 U/L (15-37); BILIRUBIN,DIRECT 0.1 mg/dL (0.0-0.2); BILIRUBIN,TOTAL 0.6 mg/dL (0.2-1.0); CALCIUM, SERUM 8.3 mg/dL (8.5-10.1); CARBON DIOXIDE 24 mmol/L (21-32); CHLORIDE 102 mmol/L (98-107); CREATININE 0.5 mg/dL (0.6-1.3); GLUCOSE 75 mg/dL (74-106); PHOSPHORUS 2.2 mg/dL (2.5-4.9); POTASSIUM 3.5 mmol/L (3.5-5.1); SODIUM SERUM 134 mmol/L (136-145); TOTAL PROTEIN, SERUM 5.8 g/dL (6.4-8.2); UREA NITROGEN, BLOOD 13 mg/dL (7-18)
--- NOTE | 2023-12-13 07:21 | NUR ---
ULTIMATE HOOPS TRAINER OPENING NOTE PT IS IN BED RESTING A/OX 4 ABLE TO MAKE NEEDS MET WITH NO COMPLICATIONS. PT IS CURRENTLY ON ROOM AIR SATURATING AT 98% AND DENIES SOB OR RESPIRATORY DISTRESS. PT IS ON TELE MONITORING WITH A READING OF A-PACING IN THE 'S. PT IS AMBULATORY WITH NO ASSIST. PT HAS IV ACCESS PM THE RAC# 22G AND A RCW PORTACATH. ALL SAFETY MEASURES IN PLACE, BED IS LOCKED, ON THE LOWEST POSITION, WITH CALL LIGHT AND BEDSIDE TABLE WITHIN EASY REACH. WILL GIVE REPORT TO AM SHIFT FOR ONGOING CARE. Addendum: 12/13/23 at 0722 by ASHELY HALL RN CLOSING NOTE
--- NOTE | 2023-12-13 07:25 | NUR ---
HEARING AID REPAIR TECHNICIAN OPENING NOTES Received pt awake in bed. AOX4, no complaints of pain or discomfort at this time. On isolation for COVID19. Patient is on room air and tolerating it well. IV access on LAC 22G patent and intact saline lock. HOB elevated to pts comfort. Siderails up at all times x2. Bed locked and at its lowest height for safety. Call light within reach. Care is ongoing.
[2023-12-13 08:00] VITALS: BP 122/59; TEMP 97.3; O2SAT 95
[2023-12-13 08:08] LABS: URIC ACID 3.1 mg/dL (2.6-7.2)
[2023-12-13] MEDS: VANCOMYCIN 1 GM in IV D5W 250ml IV SCH (09:35)
[2023-12-13 12:00] VITALS: BP 102/55; TEMP 97.5; O2SAT 95
[2023-12-13] MEDS: REMDESIVIR (CHARGED) 100 MG in IV NS 0.9% 80 ML IV SCH (13:26)
[2023-12-13 16:00] VITALS: BP 100/64; TEMP 97.3; O2SAT 96
[2023-12-13] MEDS: K PHOS NEUTRAL 250 MG TABLET PO ONE (16:25)
--- NOTE | 2023-12-13 18:30 | NUR ---
ARTIST MANNEQUIN COLORING CLOSING NOTES All due meds and tx given as ordered. Pt tolerated everything well. All needs attended to. Pt remains on room air and tolerating it well. HOB elevated to pts comfort. Siderails up at all times x2. Bed locked and at its lowest height for safety. Call light with reach. Will endorse to oncoming nurse.
--- NOTE | 2023-12-13 19:15 | NUR ---
RN OPENING NOTES PT RECEIVED IN BED AWAKE AND ALERT X4; ABLE TO MAKE NEEDS KNOWN AND AMBULATORY. PT IS CURRENTLY ON ISOLATION DUE TO A POSITIVE COVID 19 STATUS. PT IS CURRENTLY ON ROOM AIR SATURATING AT 95% AND DENIES SOB OR RESPIRATORY DISTRESS. PT HAS IV ACCESS ON THE RFA #22G FLUSHING WELL WITH NO COMPLICATIONS. PT IS ON TELE MONITORING WITH A READING OF A-PACING IN THE 70'S. ALL SAFETY MEASURES IN PLACE, BED IS LOCKED, ON THE LOWEST POSITION WITH CALL LIGHT AND BEDSIDE TABLE WITHIN EASY REACH. PLAN OF CARE ONGOING.
[2023-12-13 20:00] VITALS: BP 121/60; TEMP 97.8; O2SAT 95
[2023-12-14] VITALS: BP 117/63; TEMP 97.4; O2SAT 94
--- NOTE | 2023-12-14 01:10 | NUR ---
RN NOTE HELD 0100 VANCOMYCIN IV DUE TO TROUGH BEING 22. PLAN OF CARE ONGOING.
[2023-12-14 04:00] VITALS: BP 103/60; TEMP 97.6; O2SAT 97
--- NOTE | 2023-12-14 06:59 | NUR ---
RN CLOSING NOTE PT IS IN BED RESTING, A/OX4 ABLE TO MAKE NEEDS MET WITH NO COMPLICATIONS. PT IS CURRENTLY AMBULATORY AND HAS BRP. PT IS ON ROOM AIR SATURATING AT 97% AND KRYSTINA SOB OR RESPIRATORY DISTRESS; HOWEVER, WITH A SLIGHT COUGH. PT IS ON TELE MONITORING WITH A READING OF PACING IN THE 70'S. PT VIKTOR IV ACCESS ON THE RFA #22G SALINE LOCKED. ALL SCHEDULED MEDICATIONS GIVEN WITH NO COMPLICATIONS. ALL SAFETY MEASURES IN PLACE, BED IS LOCKED, ON THE LOWEST POSITION, WITH CALL LIGHT AND BEDSIDE TABLE WITHIN EASY REACH. PLAN OF CARE ONGOING.
[2023-12-14 07:12] LABS: BASOPHILS % (AUTO) 0.4 % (0.0-2.0); HEMATOCRIT 25 % (39-51); HEMOGLOBIN 8.5 g/dL (13.5-17.5); LYMPHOCYTES # (AUTO) 0.9 K/uL (0.8-4.8); LYMPHOCYTES % (AUTO) 15.4 % (20.0-44.0); MEAN CORPUSCULAR HEMOGLOBIN 30 PG (26.0-33.0); MEAN CORPUSCULAR HGB CONC 35 g/dl (31.0-36.0); MEAN CORPUSCULAR VOLUME 87 fL (80-96); MONOCYTES # (AUTO) 0.1 K/uL (0.1-1.30); MONOCYTES % (AUTO) 0.9 % (2.0-12.0); NEUTROPHILS # (AUTO) 4.7 K/uL (1.8-8.9); NEUTROPHILS % (AUTO) 83.3 % (43.0-81.0); PLATELET COUNT (AUTO) 231 K/uL (150-450); RED BLOOD CELL COUNT(AUTO) 2.85 MIL/uL (4.5-6.0); RED CELL DISTRIBUTION WIDTH 16.9 % (11.5-15.0); WHITE BLOOD COUNT (AUTO) 5.6 K/uL (4.3-11.0)
[2023-12-14 07:20] LABS: INR 1.09 (0.91-1.10); PARTIAL THROMBOPLASTIN TIME 25.4 SEC (24.3-34.3); PROTHROMBIN TIME 11.5 SECS (9.2-11.1)
[2023-12-14 07:36] LABS: ALANINE AMINOTRANSFERASE 24 U/L (12-78); ALKALINE PHOSPHATASE 132 U/L (46-116); ASPARTATE AMINOTRANSFERASE 25 U/L (15-37); BILIRUBIN,DIRECT 0.2 mg/dL (0.0-0.2); BILIRUBIN,TOTAL 0.7 mg/dL (0.2-1.0); CALCIUM, SERUM 8.6 mg/dL (8.5-10.1); CARBON DIOXIDE 25 mmol/L (21-32); CHLORIDE 101 mmol/L (98-107); CREATININE 0.6 mg/dL (0.6-1.3); GLUCOSE 79 mg/dL (74-106); PHOSPHORUS 2.3 mg/dL (2.5-4.9); POTASSIUM 3.4 mmol/L (3.5-5.1); SODIUM SERUM 134 mmol/L (136-145); UREA NITROGEN, BLOOD 18 mg/dL (7-18)
--- NOTE | 2023-12-14 07:51 | NUR ---
RN OPENING NOTE Received pt in bed awake, A/O x4 and able to make needs known. Pt continues on room air and tolerating well. Pt on cardiac monitoring. IV access to RFA #22g, SL. Pt is ambulatory. Isolation precautions implemented due to Covid-19. Safety measures in place. Bed in low and locked position. Call light in reach. Plan of care ongoing.
[2023-12-14 08:00] VITALS: BP 114/60; TEMP 97.5; O2SAT 97
[2023-12-14] MEDS: POTASSIUM CHLORIDE 20 MEQ TAB.PRT.SR PO ONE (11:44)
[2023-12-14 12:00] VITALS: BP 116/56; TEMP 97.5; O2SAT 97
[2023-12-14 16:00] VITALS: BP 114/54; TEMP 97.3; O2SAT 97
[2023-12-14] MEDS: K PHOS NEUTRAL 250 MG TABLET PO ONE (16:56)
[2023-12-14] MEDS: VANCOMYCIN 1 GM in IV D5W 250ml IV SCH (18:00)
--- NOTE | 2023-12-14 19:25 | NUR ---
RN CLOSING NOTE Pt in bed awake, A/O x4 and able to make needs known. Pt continues on room air and tolerating well. Pt on cardiac monitoring. IV access to RFA #22g, SL. Pt is ambulatory. Isolation precautions implemented due to Covid-19. Safety measures in place. Bed in low and locked position. Call light in reach. Plan of care ongoing.
[2023-12-14 20:00] VITALS: BP 117/65; TEMP 97.9; O2SAT 94
--- NOTE | 2023-12-14 20:00 | NUR ---
COOLER DELIVERER NOTE PT IN BED. A/O X 4, NO SOB, NO DISTRESS OR DISCOMFORT NOTED. DENIES PAIN. ON TELE MONITOR SR HR 76. RFA #22 G SL INTACT AND PATENT. PT IN ISOLATION FOR COVID +. ALL NEEDS ATTENDED. VSS. CONTINUE TO MONITOR HIM.
[2023-12-15] VITALS: BP_SYST 105; BP_SYST 115; BP_DIAS 59; BP_DIAS 60; TEMP 97.5; TEMP 97.7; O2SAT 92; O2SAT 95
[2023-12-15 04:00] VITALS: BP 112/65; TEMP 97.7; O2SAT 94
--- NOTE | 2023-12-15 06:54 | NUR ---
BATCH TESTER NOTE PT IN BED AWAKE. NO DISTRESS OR DISCOMFORT NOTED. NO S/S OF PAIN NOTED. SR SIDE RAILS UP X 2 AND CALL LIGHT WITHIN REACH. WILL ENDORSE TO DAY SHIFT NURSE FOR CONTINUE TO CARE.
--- NOTE | 2023-12-15 07:30 | NUR ---
RN OPENING NOTE RECEIVED PATIENT IN BED AWAKE, A/O X4. ABLE TO MAKE NEEDS KNOWN. BREATHING EVEN AND UNLABORED. ON ROOM AIR, TOLERATING WELL. NO RESPIRATORY DISTRESS NOTED. ON TELE MONITORING READING SR. IV ON RFA #22G INTACT AND PATENT. SAFETY MEASURES IMPLEMENTED; BED LOCKED, IN LOW POSITION, SR UP, BED ALARM ON, CALL LIGHT AND SIDE TABLE WITHIN EASY REACH. PLAN OF CARE ONGOING.
[2023-12-15 07:38] LABS: BASOPHILS % (AUTO) 0.6 % (0.0-2.0); EOSINOPHILS % (AUTO) 0.2 % (0.0-6.0); HEMATOCRIT 22 % (39-51); HEMOGLOBIN 7.9 g/dL (13.5-17.5); LYMPHOCYTES # (AUTO) 0.7 K/uL (0.8-4.8); LYMPHOCYTES % (AUTO) 39.8 % (20.0-44.0); MEAN CORPUSCULAR HEMOGLOBIN 31 PG (26.0-33.0); MEAN CORPUSCULAR HGB CONC 36 g/dl (31.0-36.0); MEAN CORPUSCULAR VOLUME 86 fL (80-96); MONOCYTES # (AUTO) 0.1 K/uL (0.1-1.30); MONOCYTES % (AUTO) 5.5 % (2.0-12.0); NEUTROPHILS # (AUTO) 0.9 K/uL (1.8-8.9); NEUTROPHILS % (AUTO) 53.9 % (43.0-81.0); PLATELET COUNT (AUTO) 182 K/uL (150-450); RED BLOOD CELL COUNT(AUTO) 2.59 MIL/uL (4.5-6.0); RED CELL DISTRIBUTION WIDTH 16.9 % (11.5-15.0)
[2023-12-15 07:41] LABS: CALCIUM, SERUM 8.3 mg/dL (8.5-10.1); CARBON DIOXIDE 27 mmol/L (21-32); CHLORIDE 100 mmol/L (98-107); CREATININE 0.6 mg/dL (0.6-1.3); GLUCOSE 97 mg/dL (74-106); POTASSIUM 3.5 mmol/L (3.5-5.1); SODIUM SERUM 132 mmol/L (136-145); UREA NITROGEN, BLOOD 18 mg/dL (7-18)
[2023-12-15 07:42] LABS: INR 1.08 (0.91-1.10); PARTIAL THROMBOPLASTIN TIME 26.2 SEC (24.3-34.3); PROTHROMBIN TIME 11.4 SECS (9.2-11.1)
[2023-12-15 07:46] LABS: WHITE BLOOD COUNT (AUTO) 1.7 K/uL (4.3-11.0)
--- NOTE | 2023-12-15 07:50 | NUR ---
RN NOTE RECEIVED CALL FROM LAB CRITICAL LAB VALUE WBC=1.7. MD NOTIFIED WITH NNO AT THIS TIME. WILL CONTINUE TO MONITOR
[2023-12-15 08:00] VITALS: BP 115/61; TEMP 97.4; O2SAT 95
[2023-12-15 08:36] LABS: ANISOCYTOSIS 1+; BASOPHILS % (MANUAL) 0 % (0.0-2.0); EOSINOPHILS % (MANUAL) 0 % (0-4); LYMPHOCYTES % (MANUAL) 39 % (16-48); MONOCYTES % (MANUAL) 8 % (0-11.0); NEUTROPHILS % (MANUAL) 53 (42-76); PLATELET ESTIMATE ADEQUATE
[2023-12-15 10:40] LABS: ALBUMIN 2.9 g/dL (3.4-5.0); BILIRUBIN,DIRECT 0.2 mg/dL (0.0-0.2); BILIRUBIN,TOTAL 0.8 mg/dL (0.2-1.0); TOTAL PROTEIN, SERUM 5.8 g/dL (6.4-8.2)
[2023-12-15] MEDS: NEUTRA PHOS 1 POWD.PACKET PO ONE (11:35)
[2023-12-15 12:00] VITALS: BP 120/58; TEMP 97.5; O2SAT 95
[2023-12-15 16:00] VITALS: BP 114/60; TEMP 97.5; O2SAT 97
[2023-12-15] MEDS: K PHOS NEUTRAL 250 MG TABLET PO ONE (16:09)
--- NOTE | 2023-12-15 18:41 | NUR ---
RN CLOSING NOTE PATIENT IN BED AWAKE, A/O X4. ABLE TO MAKE NEEDS KNOWN. BREATHING EVEN AND UNLABORED. ON ROOM AIR, TOLERATING WELL. NO RESPIRATORY DISTRESS NOTED. ON TELE MONITORING READING SR HR=80'S. IV ON RFA #22G INTACT AND PATENT SL. SAFETY MEASURES IMPLEMENTED; BED LOCKED, IN LOW POSITION, SR UP, BED ALARM ON, CALL LIGHT AND SIDE TABLE WITHIN EASY REACH. WILL ENDORSE TO NIGHT NURSE FOR CONTINUITY OF CARE.
--- NOTE | 2023-12-15 19:25 | NUR ---
RN OPENING NOTE RECEIVED PT IN BED. A/O X4. NO DISTRESS AND DISCOMFORT NOTED. COVID + ISOLATION. ON ROOM AIR, NO SOB NOTED. SCALE EXPERT IN PLACE READING SR, HR 77. IV ACCESS RFA 22G, SL. PT IS BRP. ALL SAFETY PRECAUTIONS IN PLACE: BED LOCKED AND IN LOWEST POSITION, SIDE RAILS UP X3, CALL LIGHT AND TABLE WITHIN REACH. WILL CONTINUE PLAN OF CARE.
[2023-12-15 20:00] VITALS: BP 105/58; TEMP 97.7; O2SAT 97
[2023-12-16] VITALS: BP 115/59; TEMP 97.5; O2SAT 93
[2023-12-16 04:00] VITALS: BP 110/61; TEMP 97.7; O2SAT 94
--- NOTE | 2023-12-16 06:33 | NUR ---
RN CLOSING NOTE PT IN BED. A/O X4. NO DISTRESS AND DISCOMFORT NOTED. COVID + ISOLATION. ON ROOM AIR, NO SOB NOTED. AGRICULTURE LABORER IN PLACE READING SR, HR 76. IV ACCESS RFA 22G, SL. PT IS AMBULATORY. ALL DUE MEDS GIVEN. KEPT PT DRY AND CLEAN. BED LOCKED AND IN LOWEST POSITION, SIDE RAILS UP X3, CALL LIGHT AND TABLE WITHIN REACH. WILL ENDORSE TO NEXT SHIFT NURSE FOR MORGAN.
--- NOTE | 2023-12-16 07:48 | NUR ---
RN OPENING NOTES PT IS IN BED, ASLEEP, A/OX4, ABLE TO MAKE NEEDS KNOWN. ON ISO FOR COVID, WILL USE PROPER PPE THROUGHOUT CARE. ON RA, TOLERATING WELL. ON TELE READING SR, 77. IV IS ON THE RFA 22G, SL, PATENT AND INTACT. PT IS AMBULATORY, ABLE TO GO TO THE RESTROOM ON THEIR OWN, TOLD PT TO USE CALL LIGHT, IF THEY NEED ASSISTANCE. SAFETY MEASURES IN PLACE: BED AT LOWEST AND LOCKED POSITION, HOB ELEVATED, SIDE RAILS X 2, CALL LIGHT AND TABLE WITHIN REACH. WILL CONTINUE POC.
[2023-12-16 08:00] VITALS: BP 108/53; TEMP 97.7; O2SAT 92
[2023-12-16 08:41] LABS: BASOPHILS % (AUTO) 1.1 % (0.0-2.0); EOSINOPHILS % (AUTO) 0.2 % (0.0-6.0); HEMATOCRIT 23 % (39-51); HEMOGLOBIN 7.8 g/dL (13.5-17.5); LYMPHOCYTES # (AUTO) 0.6 K/uL (0.8-4.8); LYMPHOCYTES % (AUTO) 49.6 % (20.0-44.0); MEAN CORPUSCULAR HEMOGLOBIN 30 PG (26.0-33.0); MEAN CORPUSCULAR HGB CONC 35 g/dl (31.0-36.0); MEAN CORPUSCULAR VOLUME 86 fL (80-96); MONOCYTES # (AUTO) 0.2 K/uL (0.1-1.30); NEUTROPHILS # (AUTO) 0.4 K/uL (1.8-8.9); NEUTROPHILS % (AUTO) 33.1 % (43.0-81.0); PLATELET COUNT (AUTO) 168 K/uL (150-450); RED BLOOD CELL COUNT(AUTO) 2.62 MIL/uL (4.5-6.0); RED CELL DISTRIBUTION WIDTH 17.1 % (11.5-15.0)
[2023-12-16 08:45] LABS: WHITE BLOOD COUNT (AUTO) 1.3 K/uL (4.3-11.0)
[2023-12-16 08:53] LABS: INR 1.1 (0.91-1.10); PARTIAL THROMBOPLASTIN TIME 25.8 SEC (24.3-34.3); PROTHROMBIN TIME 11.6 SECS (9.2-11.1)
[2023-12-16 09:09] LABS: ALANINE AMINOTRANSFERASE 37 U/L (12-78); ALBUMIN 3.1 g/dL (3.4-5.0); ALKALINE PHOSPHATASE 135 U/L (46-116); ASPARTATE AMINOTRANSFERASE 24 U/L (15-37); BILIRUBIN,DIRECT 0.3 mg/dL (0.0-0.2); CALCIUM, SERUM 8.4 mg/dL (8.5-10.1); CARBON DIOXIDE 25 mmol/L (21-32); CHLORIDE 99 mmol/L (98-107); CREATININE 0.5 mg/dL (0.6-1.3); GLUCOSE 80 mg/dL (74-106); POTASSIUM 3.2 mmol/L (3.5-5.1); SODIUM SERUM 133 mmol/L (136-145); UREA NITROGEN, BLOOD 16 mg/dL (7-18)
[2023-12-16 11:30] LABS: ANISOCYTOSIS 1+; BASOPHILS % (MANUAL) 0 % (0.0-2.0); EOSINOPHILS % (MANUAL) 0 % (0-4); LYMPHOCYTES % (MANUAL) 41 % (16-48); MONOCYTES % (MANUAL) 14 % (0-11.0); NEUTROPHILS % (MANUAL) 45 (42-76); PLATELET ESTIMATE ADEQUATE
[2023-12-16 12:00] VITALS: BP 102/53; TEMP 97.5; O2SAT 94
[2023-12-16] MEDS: POTASSIUM CHLORIDE 20 MEQ TAB.PRT.SR PO ONE (14:31)
--- NOTE | 2023-12-16 16:27 | NUR ---
RN NOTES PT IS BEING DISCHARGED TO HOME. PT IS MEDICALLY STABLE, ALL DOCUMENTS AND PAPERWORKS WERE SIGNED AND PROVIDED TO PT. IV WAS REMOVED. PT IS ABLE TO WALK AND LEFT VIA PRIVATE CAR WITH FRIEND, EDUARDA GIRON. PT SAFELY DISCHARGED.
== END 2023-12-16 16:40 | disposition home or self-care (01) | DRG 177 ==
LOC: ER 06:04 → TELE-TD 09:36 → TELE1 11:46
PROVIDERS: ADMIT Nurse Practitioner Acute Care; ATTEND Nurse Practitioner Acute Care
PROC: XW033E5 Introduction of Remdesivir Anti-infective into Peripheral Vein, Percutaneous Approach, New Technology Group 5 (ICD-10-PCS; principal; 2023-12-11)
DX: U07.1 COVID-19 (principal); J12.82 Pneumonia due to coronavirus disease 2019; J96.01 Acute respiratory failure with hypoxia; J15.9 Unspecified bacterial pneumonia; D61.818 Other pancytopenia; E44.1 Mild protein-calorie malnutrition; I48.20 Chronic atrial fibrillation, unspecified; C34.92 Malignant neoplasm of unspecified part of left bronchus or lung; C34.91 Malignant neoplasm of unspecified part of right bronchus or lung; C78.7 Secondary malignant neoplasm of liver and intrahepatic bile duct; E22.2 Syndrome of inappropriate secretion of antidiuretic hormone; E88.09 Other disorders of plasma-protein metabolism, not elsewhere classified; Z87.891 Personal history of nicotine dependence; Z95.0 Presence of cardiac pacemaker; Z79.01 Long term (current) use of anticoagulants; E03.9 Hypothyroidism, unspecified; I10 Essential (primary) hypertension; D63.8 Anemia in other chronic diseases classified elsewhere; F32.A Depression, unspecified; Z79.60 Long term (current) use of unspecified immunomodulators and immunosuppressants; D70.1 Agranulocytosis secondary to cancer chemotherapy; T45.1X5A Adverse effect of antineoplastic and immunosuppressive drugs, initial encounter; Y92.009 Unspecified place in unspecified non-institutional (private) residence as the place of occurrence of the external cause; Z28.310 Unvaccinated for COVID-19; Z92.3 Personal history of irradiation; Z68.22 Body mass index [BMI] 22.0-22.9, adult
CPT/HCPCS: 36415; 71045-TC; 80048-TC; 80053-TC; 80076-TC; 80202-TC; 82272-TC; 82728-TC; 83605-TC; 83735-TC; 83880; 84100-TC; 84443-TC; 84484-TC; 84550-TC; 85025-TC; 85027-TC; 85378-TC; 85610-TC; 85730-TC; 86140-TC; 87040-TC; A4223; G0378; J0456; J0696; J1100; J2048; J2185; J3370; J3371; J7030; J7050; J7060